=== PATIENT | female | born 1935 | race Caucasian/White ===

== ENCOUNTER 2019-04-12 23:16 | Emergency (ER) | payer OTHER ==
[~2019-04-12] VITALS: Ht 152.4 cm; Wt 59.0 kg
[~2019-04-12 23:16] MED LIST: AMBIEN5 MG; FOSAMAX10 MG; LODOSYN25 MG; SINGULAIR 4MG4 MG; ZITHROMAX500 MG PO
== END 2019-04-13 15:02 | disposition home or self-care (01) ==
LOC: ER 23:16
DX: K94.29 Other complications of gastrostomy (principal); R10.12 Left upper quadrant pain